=== PATIENT | female | born 1980 | race Two or more races ===

== ENCOUNTER 2023-06-15 23:48 | Emergency (ER) | payer MEDICAID, OTHER ==
[~2023-06-15] VITALS: Ht 157.5 cm; Wt 80.2 kg
[2023-06-16] MEDS ORDERED: DexAMETHasone SOD PHOS 10MG/1ML VIAL INJ IM ONE (02:45)
[2023-06-16] MEDS ORDERED: guaiFENesin-CODEINE Liq 5 ML UD PO ONE (02:45)
[2023-06-16] MEDS ORDERED: cefTRIAXone SOD 1,000 MG VL IM ONE (02:45)
[2023-06-16] MEDS ORDERED: ALBUTEROL SULF 2.5 MG/0.5ML(0.5%) NEB SOLN NEB ONE (02:45)
[2023-06-16] MEDS ORDERED: IPRATROPIUM BROM 0.5 MG/2.5ML INH SOL NEB ONE (02:45)
[2023-06-16] MEDS ORDERED: DEX4T PO (02:47)
[2023-06-16] MEDS ORDERED: BENZ200C64 PO (02:47)
[2023-06-16] MEDS ORDERED: ALBUAER3 IN (02:47)
[2023-06-16] MEDS ORDERED: AUG875T PO (02:47)
[2023-06-16 04:04] VITALS: BP 146/85; PULSE 101; RESP 20; TEMP 98.1; O2SAT 100
== END 2023-06-16 04:03 | disposition home or self-care (01) ==
LOC: ER 23:48
DX: U07.1 COVID-19 (principal); J12.82 Pneumonia due to coronavirus disease 2019; I10 Essential (primary) hypertension
CPT/HCPCS: 71045; 94640; 96372; 99284; J0696; J1100; J7644

== ENCOUNTER 2023-12-03 02:00 | Emergency (ER) | payer MEDICAID ==
[~2023-12-03] VITALS: Ht 157.5 cm; Wt 77.7 kg
[~2023-12-03 02:00] MED LIST: ALBUAER3 IN; AUG875T PO; BENZ200C64 PO; DEX4T PO
[2023-12-03 02:10] VITALS: BP 152/98; PULSE 79; RESP 16; TEMP 98.1; O2SAT 93
[2023-12-03] MEDS ORDERED: IBUP-1456 PO (04:41)
[2023-12-03] MEDS ORDERED: CLIN1CAP70 PO (04:41)
[2023-12-03] MEDS: IBUPROFEN 800 MG TAB PO ONE (04:45)
[2023-12-03] MEDS: BENZOCAINE (DENTAL) 20 % SPRAY 60ML MT ONE (04:45)
== END 2023-12-03 05:25 | disposition home or self-care (01) ==
LOC: ER 02:00
DX: K04.7 Periapical abscess without sinus (principal); I10 Essential (primary) hypertension; Z79.899 Other long term (current) drug therapy

== ENCOUNTER 2024-03-04 18:52 | Emergency (ER) | payer MEDICAID ==
[~2024-03-04] VITALS: Ht 157.5 cm; Wt 77.3 kg
[~2024-03-04 18:52] MED LIST changes: +CLIN1CAP70 PO; +IBUP-1456 PO
[2024-03-04 18:55] VITALS: BP 152/89; PULSE 99; RESP 16; TEMP 99.1; O2SAT 94
== END 2024-03-04 22:11 | disposition home or self-care (01) ==
LOC: ER 18:52
DX: S13.4XXA Sprain of ligaments of cervical spine, initial encounter (principal); S39.012A Strain of muscle, fascia and tendon of lower back, initial encounter; S66.812A Strain of other specified muscles, fascia and tendons at wrist and hand level, left hand, initial encounter; S66.811A Strain of other specified muscles, fascia and tendons at wrist and hand level, right hand, initial encounter; I10 Essential (primary) hypertension; Z79.899 Other long term (current) drug therapy; V89.2XXA Person injured in unspecified motor-vehicle accident, traffic, initial encounter; Y93.I9 Activity, other involving external motion; Y92.89 Other specified places as the place of occurrence of the external cause; Y99.8 Other external cause status
CPT/HCPCS: 72040; 72100